=== PATIENT | male | born 2005 | race Caucasian/White ===

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

== ENCOUNTER → 2025-01-12 | Outpatient (CLI) | payer OTHER ==
[~2025-01-12] MED LIST changes: +Methocarbamol500 MG PO; +PROM12.5S PR; +SULFAMETHOXAZO1 EAC1 PO; +Ventolin5 MG/1 ML INH; +[UNRECOGNIZED DRUG - CODE] PO
== END | disposition home or self-care (01) ==
LOC: LAB 16:29 → LAB SHORT 16:29
DX: R35.0 Frequency of micturition (principal)
CPT/HCPCS: 87086

== ENCOUNTER 2025-01-14 19:59 | Emergency (ER) | payer OTHER ==
[~2025-01-14] VITALS: Ht 149.9 cm; Wt 36.5 kg
[~2025-01-14 19:59] MED LIST changes: -Methocarbamol500 MG PO; -SULFAMETHOXAZO1 EAC1 PO
[2025-01-14] MEDS ORDERED: SULFAMETHOXAZO1 EAC1 PO (20:26)
[2025-01-14] MEDS ORDERED: Naproxen 250 MG TAB PO ONE (21:15)
[2025-01-14] MEDS ORDERED: Methocarbamol500 MG PO (22:29)
[2025-01-14 22:38] VITALS: BP 112/78
== END 2025-01-14 22:40 | disposition home or self-care (01) ==
LOC: ER 19:59
DX: S16.1XXA Strain of muscle, fascia and tendon at neck level, initial encounter (principal); S39.012A Strain of muscle, fascia and tendon of lower back, initial encounter; Z88.0 Allergy status to penicillin; Z88.8 Allergy status to other drugs, medicaments and biological substances; Z79.82 Long term (current) use of aspirin; Z79.899 Other long term (current) drug therapy; V19.9XXA Pedal cyclist (driver) (passenger) injured in unspecified traffic accident, initial encounter
CPT/HCPCS: 72100; 72125; 99284-25; A9270